=== PATIENT | female | born 1980 | race Two or more races ===

== ENCOUNTER 2024-06-09 18:31 | Emergency (ER) | payer MEDICAID, SELFPAY ==
[2024-06-09 19:30] VITALS: BP 142/84; PULSE 80; RESP 20; TEMP 36.8; O2SAT 98; BMI 48.6
--- NOTE | 2024-06-09 20:18 | XR_ITS ---
Examination: PA lateral chest 2 views Technique: Upright PA lateral chest 2 views Exam date and time: June 09, 20242026 hrs. Comparison 11/26/2008 Indications: Shortness of breath beginning 2 days ago. Findings: Normal heart size No pneumonia or pulmonary edema The osseous structures are intact Impression: No active disease
--- NOTE | 2024-06-09 20:18 | PD.EDSOB ---
ED SOB =RME/HPI General Chief Complaint: Shortness of Breath/Dyspnea Stated Complaint: SOB Time Seen by Provider: 06/09/24 18:56 Arrival date/time: 06/09/24 18:31 44-year-old female with no history of asthma or lung disorders is recently getting over influenza reports with complaints of shortness of breath for several days. Patient states she has a very mild cough but the shortness of breath is worse. She has been taking [id number] cough syrup with no relief of symptoms she currently denies fever or chills abdominal pain nausea vomiting or chest pain Limitations: no limitations Related Data Home Medications ?Medication ?Instructions ?Recorded ?Confirmed vit no.95-ferrous 1 tab PO QDAY 06/13/19 11/15/19 fumarate 28 mg-folic acid 800 mcg tablet () Previous Rx's ?Medication ?Instructions ?Recorded acetaminophen 325 mg tablet (Mapap 650 mg (2 x 325 mg) PO Q6H PRN 06/16/19 (acetaminophen)) Fever >101.5 #20 tabs cefuroxime axetil 500 mg tablet 500 mg PO BID #14 tabs 06/16/19 albuterol sulfate 90 mcg/actuation 2 inh inhalation Q4H PRN shortness 06/09/24 aerosol inhaler (Ventolin HFA) of breath or wheezing #8.5 grams benzonatate 200 mg capsule 200 mg PO TID PRN cough #30 caps 06/09/24 prednisone 20 mg tablet 60 mg PO QDAY 4 days #12 tabs 06/09/24 Allergies Allergy/AdvReac Type Severity Reaction Status Date / Time No Known Allergies Allergy Verified 06/09/24 18:32 Review of Systems Constitutional Constitutional: Denies chills and Denies fever(s) ENT Ears, Nose, Mouth, and Throat: Denies throat swelling, Denies tongue swelling and Denies vertigo Cardiovascular Cardiovascular: Denies chest pain and Reports dyspnea Respiratory Respiratory: Reports cough and Reports dyspnea Gastrointestinal Gastrointestinal: Denies nausea and Denies vomiting Musculoskeletal Musculoskeletal: Denies back pain and Denies myalgias Integumentary/Breasts Skin/Breast: Denies rash and Denies sores Neurologic Neurologic: Denies seizure-like activity and Denies vertigo Allergic/Immunologic Allergic/Immunologic: Denies throat swelling and Denies tongue swelling ED Exam General Limitations: Present no limitations General appearance: Present alert and in no apparent distress Head Head exam: Present atraumatic Eye Eye exam: Present normal appearance, PERRL and EOMI ENT ENT exam: Present normal exam, normal oropharynx and mucous membranes moist Neck Neck exam: Present normal inspection, full ROM and trachea midline Chest Chest inspection: Present normal inspection and symmetric chest wall rise Respiratory Respiratory exam: Present normal lung sounds bilaterally Cardiovascular Cardiovascular exam: Present regular rate, normal rhythm and normal heart sounds Abdominal Exam Abdominal exam: Present soft and normal bowel sounds Extremities Exam Extremities exam: Present normal inspection and full ROM Back Exam Back exam: Present normal inspection and full ROM Neurological Exam Neurological exam: Present alert, oriented X3 and CN II-XII intact Psychiatric Psychiatric exam: Present normal affect and normal mood Skin Skin exam: Present warm, dry, intact and normal color Course Course Course Narrative: 44-year-old female recently getting over influenza reports with complaints of shortness of breath. Chest x-ray shows no infiltrates or opacities patient received a DuoNeb which offered relief patient reports she is able to breathe as typical. She is stable nontoxic-appearing with stable vital signs oxygen saturations remain above 95% she will be discharged home with steroids albuterol inhaler and cough medicine she is advised to follow with her primary care provider in 24 to 48 hours or return to emergency department if symptoms should worsen patient verbalized understanding Quality Measures none Orders Category Date Time Status XR chest 2V Stat Exams 06/09/24 20:18 Completed Albuterol/Ipratr Rt Zenia [Duoneb Rt Zenia] Med 06/09/24 20:18 Discontinued 3 ml INH X1 ONE Vital Signs Vital signs: Vital Signs Temperature 98.3 F 06/09/24 19:30 Pulse Rate 80 06/09/24 19:30 Respiratory Rate 20 06/09/24 19:30 Blood Pressure 142/84 H 06/09/24 19:30 Pulse Oximetry (%) 98 06/09/24 19:30 Oxygen Delivery Method Room Air 06/09/24 19:30 Shortness of Breath / Dyspnea Patient data External records reviewed:: None Clinical information provided by:: patient Social determinants that could affect healthcare access:: none Patient has the following chronic illnesses:: none How is presenting disease/condition affected by chronic disease/condition?: no chronic disease Evaluation data The following diagnostics were reviewed and interpreted by me:: radiology exam(s) Lab and/or radiology exams considered but not ordered:: none Interpretation Summary: No evidence of pneumonia on xray Medications / Prescriptions Medications or Prescriptions considered but not ordered:: none Medication administrations:: Medication Administration History Discontinued Medications Albuterol/Ipratropium (Albuterol/Ipratropium (Duoneb) Rt Zenia 3 Ml Nebu) 3 ml INH X1 ONE Stop: 06/09/24 20:19 Last Admin: 06/09/24 21:07 Dose: 3 ml Documented By: DEBORAH as above Consultations Consultation(s) initiated? (list below): No Diagnosis Shortness of Breath Differential Diagnosis: community acquired pneumonia and other (bronchitis, influenza) Most likely diagnosis given after review of the tests above:: bronchitis Admission Indicated Admission indicated?: not indicated Admission Request Was there a request for admission?: No Disposition Plan Disposition Plan: Discharge Discharge Attestation Discharge Attestation: The patient and all family members were given an opportunity to ask questions and understood the discharge instructions. Discharge instructions specifically effects, indications for sooner follow up or return to the emergency department, and the expected course of current diagnosis. Patient condition: Stable Discharge Plan Plan Patient Disposition: HOME (Self Care) Prescriptions/Referrals Prescriptions/Med Rec: New albuterol sulfate [Ventolin HFA] 90 mcg/actuation HFA aerosol inhaler 2 inh inhalation Q4H PRN (Reason: shortness of breath or wheezing) Qty: 8.5 0RF prednisone 20 mg tablet 60 mg PO QDAY 4 Days Qty: 12 0RF Taper: Prednisone Taper 20 mg DAILY for 2 Days and 0 Hour 10 mg DAILY for 2 Days and 0 Hour 5 mg DAILY for 7 Days and 0 Hour benzonatate 200 mg capsule 200 mg PO TID PRN (Reason: cough) Qty: 30 0RF No Action PNV cmb#95-ferrous fumarate-FA [] 28 mg iron- 800 mcg Tablet 1 tab PO QDAY acetaminophen [Mapap (acetaminophen)] 325 mg Tablet 650 mg PO Q6H PRN (Reason: Fever >101.5) Qty: 20 0RF cefuroxime axetil 500 mg tablet 500 mg PO BID Qty: 14 0RF Problem List Clinical Impression: Bronchitis Patient/Caregiver Discharge Instructions Discharge Activity: activity as tolerated Education Materials: ED Bronchitis, No Antibiotic (Adult) Additional Instructions: Take medications as directed follow-up with your primary care provider in 24 to 48 hours. If symptoms worsen return to the emergency department Print Language: Bel[place]ian Stand Alone Forms: Priyanka Award Info., Patient Portal Info Letter
[2024-06-09] MEDS: ALBUTEROL/IPRATROPIUM (Duoneb) RT SOL 3 ML NEBU INH (21:07)
[2024-06-09 21:10] VITALS: PULSE 82; RESP 18; O2SAT 99
== END 2024-06-09 21:32 | disposition home or self-care (01) ==
PROVIDERS: Emergency Provider Emergency Medicine; PCP Family Medicine
DX: J40 Bronchitis, not specified as acute or chronic (principal)
CPT/HCPCS: 71046; 94640; 99283; A9270